=== PATIENT | female | born 1940 | race Asian ===

== ENCOUNTER 2017-03-23 06:36 | Day surgery (SDC) | payer MEDICARE, OTHER ==
[~2017-03-23] VITALS: Ht 152.4 cm; Wt 76.2 kg
[2017-03-23 07:01] VITALS: BP 153/81
[2017-03-23 13:35] VITALS: BP 114/78
== END 2017-03-23 11:50 | disposition home or self-care (01) ==
LOC: GI 06:36
PROVIDERS: Internal Medicine
PROC: 0DBE8ZX Excision of Large Intestine, Via Natural or Artificial Opening Endoscopic, Diagnostic (ICD-10-PCS; principal; 2017-03-23 07:30)
DX: Z12.11 Encounter for screening for malignant neoplasm of colon (principal); K57.30 Diverticulosis of large intestine without perforation or abscess without bleeding; K52.9 Noninfective gastroenteritis and colitis, unspecified; E11.9 Type 2 diabetes mellitus without complications; I10 Essential (primary) hypertension; E78.5 Hyperlipidemia, unspecified; E66.9 Obesity, unspecified; Z68.32 Body mass index [BMI] 32.0-32.9, adult
CPT/HCPCS: 45378; 82962; J1200; J1610; J2250; J2310; J3010; J3490